=== PATIENT | female | born 1960 | race Caucasian/White ===

== ENCOUNTER 2016-12-10 20:44 | Emergency (ER) | payer MEDICAID ==
[~2016-12-10] VITALS: Ht 154.9 cm; Wt 90.7 kg
[2016-12-11 01:18] VITALS: BP 156/104
== END 2016-12-11 01:18 | disposition home or self-care (01) ==
LOC: ED 20:44
DX: N39.0 Urinary tract infection, site not specified (principal); R31.9 Hematuria, unspecified; N12 Tubulo-interstitial nephritis, not specified as acute or chronic; I10 Essential (primary) hypertension
CPT/HCPCS: J0696; J1885

== ENCOUNTER 2017-05-22 19:40 | Emergency (ER) | payer MEDICAID ==
[2017-05-22 20:27] LABS: BASOPHIL % 0.3 % (0-2); PLATELET COUNT 213 x10^3mcL (130-400); RED CELL DISTRIBUTION WIDTH 13.8 % (11.5-14.5)
[2017-05-22 20:39] LABS: CALCIUM 8.7 mg/dL (8.5-10.1); CARBON DIOXIDE 33.9 mmol/L (21-32); CHLORIDE SERUM 103 mmol/L (98-107); CREATININE SERUM 0.6 mg/dL (0.6-1.0); GFR1 > 60 mL/min; GLUCOSE SERUM 115 mg/dL (74-106); POTASSIUM SERUM 3.4 mmol/L (3.5-5.1); SODIUM SERUM 141 mmol/L (136-145)
[2017-05-22 20:44] LABS: ALBUMIN 3.4 g/dL (3.4-5.0); ALKALINE PHOSPHATASE 98 U/L (46-116); ALT/SGPT 36 U/L (14-59); AMYLASE 39 U/L (25-115); AST/SGOT 25 U/L (15-37); BILIRUBIN TOTAL 0.25 mg/dL (0.20-1.00); LIPASE 106 IU/L (73-393); TOTAL PROTEIN, SERUM 7.3 g/dL (6.4-8.2)
[2017-05-22 20:56] LABS: UA SPECIFIC GRAVITY 1.015 (1.005-1.035); microscopic required? YES; urine erythrocyte NEGATIVE (NEGATIVE)
[2017-05-22 22:48] VITALS: BP 115/59
== END 2017-05-22 22:48 | disposition home or self-care (01) ==
LOC: ED 19:40
PROVIDERS: Emergency Medicine
DX: N39.0 Urinary tract infection, site not specified (principal); K76.0 Fatty (change of) liver, not elsewhere classified; J45.909 Unspecified asthma, uncomplicated; I10 Essential (primary) hypertension
CPT/HCPCS: 36415; 83880; J1885; Q0092

== ENCOUNTER 2017-10-14 21:53 | Inpatient (IN) | payer MEDICAID ==
[~2017-10-14] VITALS: Ht 157.5 cm; Wt 92.6 kg
[2017-10-14 22:19] VITALS: Ht 157.5 cm; Wt 92.6 kg
[2017-10-14 23:36] LABS: BASOPHIL % 0.3 % (0-2); PLATELET COUNT 260 x10^3mcL (130-400); RED CELL DISTRIBUTION WIDTH 13.9 % (11.5-14.5)
[2017-10-14 23:51] LABS: CALCIUM 8.6 mg/dL (8.5-10.1); CARBON DIOXIDE 28.4 mmol/L (21-32); CHLORIDE SERUM 101 mmol/L (98-107); CREATININE SERUM 0.8 mg/dL (0.6-1.0); GFR1 > 60 mL/min; GLUCOSE SERUM 126 mg/dL (74-106); POTASSIUM SERUM 3.3 mmol/L (3.5-5.1); SODIUM SERUM 140 mmol/L (136-145)
[2017-10-14 23:56] LABS: ALBUMIN 3.4 g/dL (3.4-5.0); ALKALINE PHOSPHATASE 103 U/L (46-116); ALT/SGPT 45 U/L (14-59); AST/SGOT 21 U/L (15-37); BILIRUBIN TOTAL 0.3 mg/dL (0.20-1.00); TOTAL PROTEIN, SERUM 7.3 g/dL (6.4-8.2)
[2017-10-15] MEDS ORDERED: LOSARTAN POTASS1 TAB PO (01:23)
[2017-10-15] MEDS ORDERED: ATENOLOL50 MG PO (01:24)
[2017-10-15 01:39] LABS: microscopic required? NO
[2017-10-15 01:50] LABS: urine erythrocyte NEGATIVE (NEGATIVE)
[2017-10-15 02:17] VITALS: BP 153/53
[2017-10-15 03:12] LABS: PHOSPHOROUS 3.3 mg/dL (2.5-4.9)
[2017-10-15 03:24] LABS: T3 TOTAL 1.16 ng/mL
[2017-10-15 04:02] LABS: FREE T4 1.07 ng/dL (0.76-1.46); FREE THYROXINE INDEX 2.4 ug/dL (1.4-4.5)
[2017-10-15 05:18] VITALS: BP 137/63
[2017-10-15 06:48] LABS: PLATELET COUNT 260 x10^3mcL (130-400); RED CELL DISTRIBUTION WIDTH 14.3 % (11.5-14.5)
[2017-10-15 06:51] LABS: BASOPHIL % 0 % (0-2)
[2017-10-15 07:13] LABS: CALCIUM 8.5 mg/dL (8.5-10.1); CARBON DIOXIDE 27.9 mmol/L (21-32); CHLORIDE SERUM 102 mmol/L (98-107); CREATININE SERUM 0.6 mg/dL (0.6-1.0); GFR1 > 60 mL/min; GLUCOSE SERUM 163 mg/dL (74-106); MAGNESIUM 1.9 mg/dL (1.8-2.4); PHOSPHOROUS 3.2 mg/dL (2.5-4.9); POTASSIUM SERUM 3.7 mmol/L (3.5-5.1); SODIUM SERUM 140 mmol/L (136-145)
[2017-10-15 09:22] VITALS: BP 130/95
[2017-10-15 13:33] VITALS: BP 136/58
[2017-10-15 17:00] VITALS: BP 106/60; BP 142/71
[2017-10-15 22:02] VITALS: BP 138/69
[2017-10-16 06:18] VITALS: BP 130/68
[2017-10-16 06:49] LABS: PLATELET COUNT 279 x10^3mcL (130-400)
[2017-10-16 06:51] LABS: BASOPHIL % 0 % (0-2); RED CELL DISTRIBUTION WIDTH 14.6 % (11.5-14.5)
[2017-10-16 07:07] LABS: CALCIUM 8.3 mg/dL (8.5-10.1); CARBON DIOXIDE 28.1 mmol/L (21-32); CHLORIDE SERUM 105 mmol/L (98-107); CREATININE SERUM 0.6 mg/dL (0.6-1.0); GFR1 > 60 mL/min; GLUCOSE SERUM 155 mg/dL (74-106); POTASSIUM SERUM 4.1 mmol/L (3.5-5.1); SODIUM SERUM 143 mmol/L (136-145)
[2017-10-16 09:00] VITALS: BP 135/53
[2017-10-16 13:17] VITALS: BP 135/63
[2017-10-16 17:20] VITALS: BP 141/56
[2017-10-16 21:40] VITALS: BP 157/62
[2017-10-17 05:52] VITALS: BP 155/72
[2017-10-17 06:25] LABS: PLATELET COUNT 288 x10^3mcL (130-400)
[2017-10-17 06:51] LABS: CALCIUM 8.5 mg/dL (8.5-10.1); CARBON DIOXIDE 27.2 mmol/L (21-32); CHLORIDE SERUM 104 mmol/L (98-107); CREATININE SERUM 0.5 mg/dL (0.6-1.0); GFR1 > 60 mL/min; GLUCOSE SERUM 122 mg/dL (74-106); POTASSIUM SERUM 3.5 mmol/L (3.5-5.1); SODIUM SERUM 139 mmol/L (136-145)
[2017-10-17 07:24] LABS: BASOPHIL % 0 % (0-2); RED CELL DISTRIBUTION WIDTH 15.4 % (11.5-14.5)
[2017-10-17 09:07] VITALS: BP 104/47
[2017-10-17 11:35] VITALS: BP 144/61
[2017-10-17 15:37] VITALS: BP 116/63
[2017-10-17 20:43] VITALS: BP 152/73
[2017-10-18 06:22] VITALS: BP 147/74
[2017-10-18 06:46] LABS: CARBON DIOXIDE 33.9 mmol/L (21-32); CHLORIDE SERUM 100 mmol/L (98-107); CREATININE SERUM 0.7 mg/dL (0.6-1.0); GFR1 > 60 mL/min; GLUCOSE SERUM 110 mg/dL (74-106); POTASSIUM SERUM 3.6 mmol/L (3.5-5.1); SODIUM SERUM 141 mmol/L (136-145)
[2017-10-18 07:03] LABS: BASOPHIL % 0.2 % (0-2); PLATELET COUNT 234 x10^3mcL (130-400)
[2017-10-18 09:28] VITALS: BP 165/66
[2017-10-18 13:58] VITALS: BP 143/66
[2017-10-18 16:41] VITALS: BP 112/50
[2017-10-18 22:19] VITALS: BP 144/57
[2017-10-19 05:19] VITALS: BP 122/59
[2017-10-19 07:53] LABS: BASOPHIL % 0.3 % (0-2); PLATELET COUNT 207 x10^3mcL (130-400); RED CELL DISTRIBUTION WIDTH 14.4 % (11.5-14.5)
[2017-10-19 08:02] LABS: CALCIUM 8.4 mg/dL (8.5-10.1); CARBON DIOXIDE 34.9 mmol/L (21-32); CHLORIDE SERUM 97 mmol/L (98-107); CREATININE SERUM 0.6 mg/dL (0.6-1.0); GFR1 > 60 mL/min; GLUCOSE SERUM 111 mg/dL (74-106); SODIUM SERUM 138 mmol/L (136-145)
[2017-10-19 09:10] VITALS: BP 138/87
[2017-10-19] MEDS ORDERED: CLA10 PO (10:10)
[2017-10-19] MEDS ORDERED: COZ50 PO (10:10)
[2017-10-19] MEDS ORDERED: PEP20 PO (10:14)
[2017-10-19] MEDS ORDERED: PULMICORT0.5 MG/2 M IH (10:14)
[2017-10-19] MEDS ORDERED: MONTELUKAST SOD10 M1 PO (10:15)
[2017-10-19] MEDS ORDERED: PROVENTIL0.09 MG/A1 INH (10:16)
[2017-10-19] MEDS ORDERED: MEDDP PO (10:27)
[2017-10-19 12:16] LABS: CALCIUM 8.5 mg/dL (8.5-10.1); CARBON DIOXIDE 32.4 mmol/L (21-32); CHLORIDE SERUM 100 mmol/L (98-107); CREATININE SERUM 0.5 mg/dL (0.6-1.0); GFR1 > 60 mL/min; GLUCOSE SERUM 118 mg/dL (74-106); POTASSIUM SERUM 3.9 mmol/L (3.5-5.1); SODIUM SERUM 141 mmol/L (136-145)
[2017-10-19 13:35] VITALS: BP 138/87
== END 2017-10-19 14:15 | disposition home or self-care (01) | DRG 141 ==
LOC: ED 21:53 → DU 10-15 00:28
PROVIDERS: Emergency Medicine; Family Medicine; Family Medicine Sports Medicine
DX: J45.901 Unspecified asthma with (acute) exacerbation (principal); N17.0 Acute kidney failure with tubular necrosis; J11.1 Influenza due to unidentified influenza virus with other respiratory manifestations; I10 Essential (primary) hypertension; E87.6 Hypokalemia; F43.22 Adjustment disorder with anxiety; E66.9 Obesity, unspecified; Z79.899 Other long term (current) drug therapy; Z90.710 Acquired absence of both cervix and uterus; Z68.37 Body mass index [BMI] 37.0-37.9, adult; J20.8 Acute bronchitis due to other specified organisms; J44.9 Chronic obstructive pulmonary disease, unspecified
CPT/HCPCS: 36600; 83880; 84439; 87804; 94150; J0132; J0456; J0696; J1940; J1956; J2060; J2920; J2930; J3480; J7030; J7050; J7613; J7620; J7626; J7644; Q0092; Q0169

== ENCOUNTER 2018-04-12 02:29 | Emergency (ER) | payer MEDICAID ==
[~2018-04-12] VITALS: Ht 160 cm; Wt 92.5 kg
[~2018-04-12 02:29] MED LIST: ATENOLOL50 MG PO; CLA10 PO; COZ50 PO; LOSARTAN POTASS1 TAB PO; MEDDP PO; MONTELUKAST SOD10 M1 PO; PEP20 PO; PROVENTIL0.09 MG/A1 INH; PULMICORT0.5 MG/2 M IH
[2018-04-12 02:34] VITALS: Ht 160 cm; Wt 92.5 kg
[2018-04-12 03:44] LABS: BASOPHIL % 0.3 % (0-2); PLATELET COUNT 212 x10^3mcL (130-400); RED CELL DISTRIBUTION WIDTH 13.9 % (11.5-14.5)
[2018-04-12 03:51] LABS: ALBUMIN 3.6 g/dL (3.4-5.0); ALKALINE PHOSPHATASE 96 U/L (46-116); ALT/SGPT 40 U/L (14-59); AST/SGOT 24 U/L (15-37); BILIRUBIN TOTAL 0.52 mg/dL (0.20-1.00); CALCIUM 8.6 mg/dL (8.5-10.1); CARBON DIOXIDE 31.2 mmol/L (21-32); CHLORIDE SERUM 102 mmol/L (98-107); CREATININE SERUM 0.6 mg/dL (0.6-1.0); GFR1 > 60 mL/min; GLUCOSE SERUM 109 mg/dL (74-106); LIPASE 103 IU/L (73-393); SODIUM SERUM 137 mmol/L (136-145); TOTAL PROTEIN, SERUM 7.2 g/dL (6.4-8.2)
[2018-04-12 03:53] LABS: POTASSIUM SERUM 2.8 mmol/L (3.5-5.1)
[2018-04-12 06:09] LABS: microscopic required? YES; urine erythrocyte NEGATIVE (NEGATIVE)
[2018-04-12 06:30] VITALS: BP 157/76
== END 2018-04-12 07:50 | disposition home or self-care (01) ==
LOC: ED 02:29
PROVIDERS: Emergency Medicine
DX: K57.92 Diverticulitis of intestine, part unspecified, without perforation or abscess without bleeding (principal); R31.9 Hematuria, unspecified; J45.909 Unspecified asthma, uncomplicated; I10 Essential (primary) hypertension
CPT/HCPCS: J2270; J2405; J3480; J3490; J7030

== ENCOUNTER 2018-10-31 21:32 | Emergency (ER) | payer MEDICAID ==
[~2018-10-31] VITALS: Ht 157.5 cm; Wt 94.8 kg
[2018-10-31 22:08] VITALS: Ht 157.5 cm; Wt 94.8 kg
[2018-11-01 01:21] VITALS: BP 147/74
== END 2018-11-01 01:21 | disposition home or self-care (01) ==
LOC: ED 21:32
DX: J20.9 Acute bronchitis, unspecified (principal); J45.909 Unspecified asthma, uncomplicated; I10 Essential (primary) hypertension
CPT/HCPCS: 87804; J2930; J7613; J7644

== ENCOUNTER 2019-04-23 03:57 | Emergency (ER) | payer MEDICAID ==
[~2019-04-23] VITALS: Ht 160 cm; Wt 94.3 kg
[2019-04-23 04:47] LABS: CALCIUM 8.5 mg/dL (8.5-10.1); CARBON DIOXIDE 28.9 mmol/L (21-32); CHLORIDE SERUM 102 mmol/L (98-107); CREATININE SERUM 0.7 mg/dL (0.6-1.0); GFR1 > 60 mL/min; GLUCOSE SERUM 110 mg/dL (74-106); POTASSIUM SERUM 3.5 mmol/L (3.5-5.1); SODIUM SERUM 140 mmol/L (136-145)
[2019-04-23 04:52] LABS: ALBUMIN 3.7 g/dL (3.4-5.0); ALKALINE PHOSPHATASE 117 U/L (46-116); ALT/SGPT 42 U/L (14-59); AST/SGOT 21 U/L (15-37); BILIRUBIN TOTAL 0.3 mg/dL (0.20-1.00); LIPASE 94 IU/L (73-393); TOTAL PROTEIN, SERUM 7.4 g/dL (6.4-8.2)
[2019-04-23 04:53] LABS: BASOPHIL % 0.8 % (0-2); PLATELET COUNT 231 x10^3mcL (130-400); RED CELL DISTRIBUTION WIDTH 13.6 % (11.5-14.5)
[2019-04-23 05:35] LABS: UA SPECIFIC GRAVITY <=1.005 (1.005-1.035); microscopic required? YES; urine erythrocyte 2+ (NEGATIVE)
[2019-04-23 05:55] VITALS: BP 155/74
== END 2019-04-23 05:55 | disposition home or self-care (01) ==
LOC: ED 03:57
PROVIDERS: Emergency Medicine
DX: N39.0 Urinary tract infection, site not specified (principal); J45.909 Unspecified asthma, uncomplicated; I10 Essential (primary) hypertension
CPT/HCPCS: J1885; J2405; J7030

== ENCOUNTER 2019-07-20 00:52 | Emergency (ER) | payer MEDICAID ==
[~2019-07-20] VITALS: Ht 157.5 cm; Wt 96.6 kg
[2019-07-20 01:00] VITALS: Ht 157.5 cm; Wt 96.6 kg
[2019-07-20 02:41] LABS: BASOPHIL % 0.8 % (0-2); PLATELET COUNT 254 x10^3mcL (130-400); RED CELL DISTRIBUTION WIDTH 13.8 % (11.5-14.5)
[2019-07-20 03:30] LABS: CALCIUM 8.7 mg/dL (8.5-10.1); CARBON DIOXIDE 29.7 mmol/L (21-32); CHLORIDE SERUM 103 mmol/L (98-107); CREATININE SERUM 0.6 mg/dL (0.6-1.0); GFR1 > 60 mL/min; GLUCOSE SERUM 124 mg/dL (74-106); POTASSIUM SERUM 3.1 mmol/L (3.5-5.1); SODIUM SERUM 143 mmol/L (136-145)
[2019-07-20 03:35] LABS: ALBUMIN 3.8 g/dL (3.4-5.0); ALKALINE PHOSPHATASE 121 U/L (46-116); ALT/SGPT 42 U/L (14-59); AST/SGOT 21 U/L (15-37); BILIRUBIN TOTAL 0.23 mg/dL (0.20-1.00); TOTAL PROTEIN, SERUM 7.8 g/dL (6.4-8.2)
[2019-07-20 04:51] VITALS: BP 129/54
== END 2019-07-20 04:51 | disposition home or self-care (01) ==
LOC: ED 00:52
PROVIDERS: Emergency Medicine
DX: J80 Acute respiratory distress syndrome (principal); J45.901 Unspecified asthma with (acute) exacerbation; E87.6 Hypokalemia; I10 Essential (primary) hypertension
CPT/HCPCS: J7512; J7613; J7644

== ENCOUNTER 2019-08-18 18:54 | Inpatient (IN) | payer MEDICAID ==
[~2019-08-18] VITALS: Ht 157.5 cm; Wt 95.3 kg
[2019-08-18 19:39] VITALS: Ht 157.5 cm; Wt 95.3 kg
[2019-08-18 20:33] LABS: BASOPHIL % 0.5 % (0-2); PLATELET COUNT 280 x10^3mcL (130-400); RED CELL DISTRIBUTION WIDTH 14.3 % (11.5-14.5)
--- NOTE | 2019-08-18 20:35 | NUR ---
PT PRESENTS TO ER TODAY WITH C/O DYSURIA THAT STARTED APPROX 4 DAYS AGO. PT ALSO REPORTING A GENRELIZED BLOATING LIKE PAIN TO HER ABD. PT DENIES VOMITING BUT REPORTS BRIGHT RED BLOOD AND MUCOS WITH HER STOOL. PT ALSO REPORTS A FEVER YESTERDAY. PT DENIES ANY BLOOD IN HER URINE. PT IS A/O X4. RESP ARE E/U. NO ACUTE DISTRESS NOTED.
[2019-08-18 20:49] LABS: CARBON DIOXIDE 28.3 mmol/L (21-32); CHLORIDE SERUM 100 mmol/L (98-107); CREATININE SERUM 0.6 mg/dL (0.6-1.0); GFR1 > 60 mL/min; GLUCOSE SERUM 112 mg/dL (74-106); POTASSIUM SERUM 3.1 mmol/L (3.5-5.1); SODIUM SERUM 138 mmol/L (136-145)
[2019-08-18 20:53] LABS: ALBUMIN 3.5 g/dL (3.4-5.0); ALKALINE PHOSPHATASE 114 U/L (46-116); ALT/SGPT 36 U/L (14-59); AST/SGOT 15 U/L (15-37); BILIRUBIN TOTAL 0.63 mg/dL (0.20-1.00); TOTAL PROTEIN, SERUM 7.5 g/dL (6.4-8.2)
[2019-08-19] VITALS (7 sets, daily range): BP systolic 120–152; BP diastolic 50–75
--- NOTE | 2019-08-19 00:32 | NUR ---
REPORT GIVEN TO ULISSES HICKMAN TO ASSUME CARE OF PT.
[2019-08-19 00:33] LABS: T3 TOTAL 1.42 ng/mL
[2019-08-19 00:42] LABS: CHOLESTEROL/HDL RATIO 4.5
[2019-08-19 00:52] LABS: FREE T4 0.85 ng/dL (0.76-1.46); FREE THYROXINE INDEX 2.7 ug/dL (1.4-4.5); T4(THYROXINE) 7.9 ug/dL (4.7-13.3)
--- NOTE | 2019-08-19 02:16 | NUR ---
RECEIVED PT FROM ER, PT ADMIT FOR DIVERTICULITIS, PT IS A/O X4, VERBAL RESPONSIVE, LUNG SOUND CLEAR BILATERAL, NO COUGH, NO SOB. PT DENY ANY CHEST PAIN OR DISCOMFORT, BOWEL SOUND PRESENT ALL 4 QUADRANTS, NO DISTENTION, NO TENDER. C/O ABD PAIN X 3 DAYS PIOR TO ER. AND ALSO C/O BLOODY MUSCUS STOOL. PEDAL PULSE PRESENT BOTH FEET, NO EDEMA, IV AT RIGHT FA, NO LEAKING, NO INFILTRATION. ALL ADLS ASSIST, ALL NEED MET, CALL LIGHT IN REACH, WILL CONTINUE TO MONITOR.
--- NOTE | 2019-08-19 05:22 | NUR ---
PT REMAINS ASLEEP. DAUGHTERS AT BEDSIDE. SHE HAD NO C/O ABDL PAIN. NO EPISODE OF N/V. PT AMBULATING WELL. SHE HAD NO BM THIS SHIFT. ALL NEEDS ATTENDED TO.
[2019-08-19 06:25] LABS: microscopic required? NO
[2019-08-19 06:33] LABS: BASOPHIL % 0.3 % (0-2); PLATELET COUNT 248 x10^3mcL (130-400); RED CELL DISTRIBUTION WIDTH 14.5 % (11.5-14.5)
[2019-08-19 06:51] LABS: CALCIUM 8.3 mg/dL (8.5-10.1); CARBON DIOXIDE 30.1 mmol/L (21-32); CHLORIDE SERUM 104 mmol/L (98-107); CREATININE SERUM 0.6 mg/dL (0.6-1.0); GFR1 > 60 mL/min; GLUCOSE SERUM 108 mg/dL (74-106); POTASSIUM SERUM 3.4 mmol/L (3.5-5.1); SODIUM SERUM 142 mmol/L (136-145)
--- NOTE | 2019-08-19 07:30 | NUR ---
PT IS AAOX4. NORMAL S1S2 NOTED. RESP EVEN AND UNLABORED. ON R/A. LUNG SOUNDS CTA. ABDOMEN SOFT, NONTENDER, NONDISTENDED. BOWEL SOUNDS ACTIVE X4 QUADS. DENIES N/V. IV CATH TH RFA. SITE WNL. NO S/S OF INFECTION OR INFILTRATION. PT DENIES PAIN AT THIS TIME. CALL LIGHT WITHIN REACH.
[2019-08-19 08:17] LABS: UA SPECIFIC GRAVITY <=1.005 (1.005-1.035); urine erythrocyte NEGATIVE (NEGATIVE)
--- NOTE | 2019-08-19 09:16 | NUR ---
B/P 139/75 (102), HR 73, SCHEDULED MEDS GIVEN AND TOLERATED WELL. KLORCON 20MEQ PO GIVEN FOR K+= 3.4. FLU VACCINE GIVEN IN R DELTOID. PNEUMO VACCINE REFUSED. PT BELIEVED NOT AT RISK. PT DENIES PAIN. RESP EVEN AND UNLABORED. NO DISTRESS NOTED. CALL LIGHT WITHIN REACH.
--- NOTE | 2019-08-19 13:05 | NUR ---
PT IS EATING LUNCH AT BEDSIDE. RESP EVEN AND UNLABORED. NO DISTRESS NOTED. CALL LIGTH WITHIN REACH. DENIES PAIN .
--- NOTE | 2019-08-19 15:15 | NUR ---
Discount pharmacy card and list to low cost medical clinics given to patient by Mohini Quiñones.
--- NOTE | 2019-08-19 15:24 | NUR ---
SCHEDULED MED GIVEN AND TOLERATED WELL. RESP EVEN AND UNLABORED. PT DENIES PAIN AND DISCOMFORT. CALL LIGHT WITHIN REACH.
--- NOTE | 2019-08-19 18:26 | NUR ---
PT IS AAOX4 AT THIS TIME. DENIES PAIN AND DISCOMFORT. NO DISTRESS NOTED. IV RUNNING TO RFA, SITE WNL. NO S/S OF INFECTION OR INFILTRATION. CALL LIGHT WITHIN REACH. BED IN LOWEST POSITION. WILL ENDORSE ALL CARE TO NOC RN.
--- NOTE | 2019-08-19 18:53 | NUR ---
TUMS PO GIVEN FOR BLOATED AND BURNING STOMACH.
--- NOTE | 2019-08-19 19:35 | NUR ---
RECEIVED PT FROM DAY SHIFT RN. PT AAOX4 DENIES SANCHEZ/DIZZINESS. BREATHING EVEN AND UNLABORED ON RA WITH NO SOB NOTED. ABD SOFT/DIST, ACTIVE BOWEL SOUNDS. DENIES ABD PAIN AT THIS TIME. IV PATENT, INFUSIING WELL. NO SIGNS OF ACUTE DISTRESS. CALL BUTTON WITHIN REACH. SAFETY PRECAUTIONS IN PLACE. FAMILY AT BEDSIDE. WILL CONTINUE TO MONITOR.
--- NOTE | 2019-08-19 20:45 | NUR ---
DR COLUNGA MADE AWARE PT REFUSED CT OF CHEST FOR TONIGHT AND WILL LIKE TO WAIT FOR THE MORNING TO SPEAK WITH THE DOCTOR ABOUT CT AND OTHER X-RAYS.
--- NOTE | 2019-08-19 20:58 | NUR ---
PT REFUSED HHNTX AT THIS TIME AWAITING U/S 2129 HHNTX NOT GIVEN DUE TO U/S
--- NOTE | 2019-08-20 00:56 | NUR ---
ROUNDS MADE. PT RESTING. BREATHING EVEN AND UNLABORED. NO SIGNS OF DISTRESS NOTED. CALL BUTTON WITHIN REACH. SAFETY PRECAUTIONS IN PLACE. WILL CONTINUE TO MONITOR.
[2019-08-20 05:05] VITALS: BP 137/59
--- NOTE | 2019-08-20 06:30 | NUR ---
PT SLEPT MOST OF THE NIGHT WITH NO SIGNS OF DISTRESS NOTED. IV PATENT AND INFUSING WELL WITH NO SIGNS OF DISTRESS NOTED. PT AMBULATORY WITH BRP. PT REPORTS CONT TO HAVE ABD PAIN, REFUSED PAIN MEDICAITON. PT STATES SHE CONT TO HAVE VERY SMALL BM. PT IN NO ACUTE DISTRESS AT THIS TIME. CALL BUTTON WITHIN REACH. SAFETY PRECAUTIONS IN PLACE. WILL CONTINUE TO MONITOR AND ENDORSE CARE TO DAY SHIFT RN.
--- NOTE | 2019-08-20 07:39 | NUR ---
PT RESTING, BREATHING EVEN AND UNLABORED ON RA WITH NO SOB NOTED. NO SIGNS OF DISTRESS NOTED. ENDORSED CARE TO DAY SHIFT RN, ALL QUESTIONS ADDRESSED.
[2019-08-20 08:28] LABS: BASOPHIL % 0.5 % (0-2); PLATELET COUNT 257 x10^3mcL (130-400); RED CELL DISTRIBUTION WIDTH 14.3 % (11.5-14.5)
[2019-08-20 08:38] LABS: CALCIUM 8.6 mg/dL (8.5-10.1); CARBON DIOXIDE 28.3 mmol/L (21-32); CHLORIDE SERUM 106 mmol/L (98-107); CREATININE SERUM 0.6 mg/dL (0.6-1.0); GFR1 > 60 mL/min; GLUCOSE SERUM 124 mg/dL (74-106); POTASSIUM SERUM 3.4 mmol/L (3.5-5.1); SODIUM SERUM 142 mmol/L (136-145)
--- NOTE | 2019-08-20 08:42 | NUR ---
EDGAR MOTA ROUNDED ON PATIENT AND UPDATED PAITENT AND DAUGHTER ON PLAN OF CARE. REINFORCED TEACHING ABOUT DISEASE PROCESS. DR GOMES ROUNDED AND CHANGE CT W/WO CONTRAST ORDER TO CT W/ CONTRAST. PATIENT AGREES TO CT SCAN.
[2019-08-20 08:48] VITALS: BP 151/80
--- NOTE | 2019-08-20 10:11 | NUR ---
ADMINSITERED MEDICATIONS PER OCT. EDUCATED NEW FAMILY MEMEBERS ABOUT PLAN OF CARE. ANTIBIOTICS, DISEASE PROCESS, CT SCAN THAT WAS ORDERED AND DR GOMES'S RECOMENDATIONS. ALL QUESTIONS ADDRESSED
--- NOTE | 2019-08-20 11:30 | NUR ---
NEW IV STARTED IN LEFT FOREARM. 20G, DUE TO NEED FOR IV CONTRAST PER ORDER. CALLED CT AND INFOMRED THAT PATIENT IS READY. PATIENT NPO
--- NOTE | 2019-08-20 12:30 | NUR ---
DENYS TAKEN DOWN TO CT
--- NOTE | 2019-08-20 13:21 | NUR ---
PATIENT BROUHGT BACK FROM CT. SCAN NOT DONE, PER CT RAD STAFF, PATIENT BECAME DISTRAUGHT WHEN SEEING CONTRAST AND HEARING OF ADVERSE EFFECTS, PATIENT BELEIVES THAT SHE HAS HAD 2 ADVERSE REACTIONS IN THE PAST. RAD STAFFED STATED THAT THEY CALL DR GOMES AND RECEIVED OKAY TO PERFORM SCAN WITHOUT CONTRAST. PATIENT DID NOT WANT TO EAT WHEN COMING BACK TO THE FLOOR EVEN THOUG THE STAFF SAID SHE CAN BEFORE COMING BACK DOWN. THEY WILL COME TO GET PATIENT WHEN OPENING IN [facility] [place]
[2019-08-20 13:44] VITALS: BP 154/81
--- NOTE | 2019-08-20 16:14 | NUR ---
PATIENT SITTING UP ON SIDE OF BED IN [facility]. REMOVED 22G IV TO LEFT AC DUE TO HAVING A 20G TO LEFT FOREARM
[2019-08-20 17:01] VITALS: BP 130/51
[2019-08-20 20:18] VITALS: BP 136/56
--- NOTE | 2019-08-20 21:39 | NUR ---
RT AT BEDSIDE.
--- NOTE | 2019-08-21 02:00 | NUR ---
ROUNDS MADE. PT RESTING. BREATHING EVEN AND UNLABORED ON RA WITH NO SOB NOTED. NO SIGNS OF ACUTE DISTRESS NOTED. CALL BUTTON WITHIN REACH. SAFETY PRECAUTIONS IN PLACE. WILL CONTINUE TO MONITOR.
[2019-08-21 05:18] VITALS: BP 144/69
[2019-08-21 06:39] LABS: CALCIUM 8.8 mg/dL (8.5-10.1); CARBON DIOXIDE 26.5 mmol/L (21-32); CHLORIDE SERUM 105 mmol/L (98-107); CREATININE SERUM 0.6 mg/dL (0.6-1.0); GFR1 > 60 mL/min; GLUCOSE SERUM 104 mg/dL (74-106); SODIUM SERUM 143 mmol/L (136-145)
[2019-08-21 06:45] LABS: BASOPHIL % 0.6 % (0-2); PLATELET COUNT 246 x10^3mcL (130-400)
--- NOTE | 2019-08-21 07:15 | NUR ---
RECEIVED REPORT FROM NIGHT NURSE PATIENT STANDING UP BY HER BED A&O X4 DENIES ANY PAIN AT THIS TIME. ABD SOFT AND FLAT ACTIVE SOUNDS IN ALL 4 QUADS. IV ON RFA PATENT AND INTACT NO REDNESS OR EDEMA NOTED. NO S/S OF ANY ACUTE DISTRESS NOTED. ASSESSMENT COMPLETE AND DOCUMENTED. ALL QUESTIONS AND CONCERNS ADDRESSED AT THIS TIME. BED IN LOWEST POSITION CALL LIGHT WITHIN REACH. WILL CONTINUE TO MONITOR.
--- NOTE | 2019-08-21 07:33 | NUR ---
PT RESTING. BREATHING EVEN AND UNLABORED ON RA WITH NO SOB NOTED. NO SIGNS OF DISTRESS NOTED. CALL BUTTON WITHIN REACH. SAFETY PRECAUTIONS IN PLACE. ENDORSED CARE TO DAY SHIFT RN, ALL QUESTIONS ADDRESSED.
[2019-08-21 08:29] VITALS: BP 145/63
--- NOTE | 2019-08-21 08:42 | NUR ---
ADMINISTERED SCHEDULED MEDS PER MAR PATIENT TOLERATED WELL NO ADVERSE REACTIONS NOTED. ALL NEEDS ATTENDED TO AT THIS TIME. SAFETY PRECAUTIONS IN PLACE. WILL CONTINUE TO MONITOR.
[2019-08-21] MEDS ORDERED: FLA500 PO (10:52)
--- NOTE | 2019-08-21 11:57 | NUR ---
NAKUL HERNÁNDEZ AT BEDSIDE UPDATING PATIENT AND FAMILY OF CARE AND DISCHARGE. PATIENT AND FAMILY VERBALIZED UNDERSTANDING.
[2019-08-21 12:00] VITALS: BP 145/63
--- NOTE | 2019-08-21 12:25 | NUR ---
DISCHARGE INSTRUCTIONS GIVEN TO PATIENT AND FAMILY BOTH VERBALIZED UNDERSTANDING. IV D/C'D CATHETER INTACT DRESSING APPLIED. ALL QUESTIONS AND CONCERNS ADDRESSED. PATIENT V/S FOR DISCHARGE. ESCORTED PATIENT TO LOBBY. ALL PERSONAL BELONGINGS TAKEN WITH PATIENT.
[2019-08-21 12:34] LABS: AMPHETAMINE QUAL UR NONE DETECTED (See below)
== END 2019-08-21 12:25 | disposition home or self-care (01) | DRG 244 ==
LOC: ED 18:54 → MU 22:39
PROVIDERS: Emergency Medicine; ADMIT Family Medicine
DX: K57.33 Diverticulitis of large intestine without perforation or abscess with bleeding (principal); J45.21 Mild intermittent asthma with (acute) exacerbation; I10 Essential (primary) hypertension; E87.6 Hypokalemia; K64.9 Unspecified hemorrhoids; N83.202 Unspecified ovarian cyst, left side; Z68.36 Body mass index [BMI] 36.0-36.9, adult; Z86.010 Personal history of colon polyps
CPT/HCPCS: 83880; 84439; 87804; 90658; 90732; G0378; J0696; J1885; J2543; J3480; J3490; J7030; J7620; J7626; Q0092; Q9967